=== PATIENT | female | born 1980 | race Caucasian/White ===

== ENCOUNTER 2018-05-07 05:50 | Day surgery (SDC) | payer OTHER ==
[~2018-05-07 05:50] MED LIST: TYLENOL-CODEINE1 TAB PO
[2018-05-07] MEDS ORDERED: VOLTAREN-XR100 MG PO (08:51)
[2018-05-07] MEDS ORDERED: RECTICARE30 GM TOP (08:52)
== END 2018-05-07 10:00 | disposition home or self-care (01) ==
LOC: AMB-ENDOS 05:50
DX: K64.8 Other hemorrhoids (principal)

== ENCOUNTER 2018-08-31 18:07 | Emergency (ER) | payer OTHER ==
[~2018-08-31] VITALS: Ht 157.5 cm; Wt 49.9 kg
[~2018-08-31 18:07] MED LIST changes: +RECTICARE30 GM TOP; +VOLTAREN-XR100 MG PO
== END 2018-08-31 22:51 | disposition home or self-care (01) ==
LOC: ER 18:07
DX: R68.83 Chills (without fever) (principal); R10.32 Left lower quadrant pain